=== PATIENT | female | born 1950 | race Caucasian/White ===

== ENCOUNTER 2017-02-16 14:04 | Emergency (ER) | payer OTHER ==
[2017-02-16] MEDS ORDERED: NS 1,000 ML IV ONE (14:15)
[2017-02-16 14:17] VITALS: PULSE 60; RESP 16; TEMP 98.1
--- NOTE | 2017-02-16 14:21 | EDPHY ---
H & P HPI/ROS: CHIEF COMPLAINT: Chest pain HISTORY OF PRESENT ILLNESS: The patient is a 66-year-old female with a history of pacemaker and AFib on Coumadin who comes to the emergency department for chest pain. She is traveling from [place] to [place] for a wedding. She states that about 13 hr ago she began having this pain. It has been constant ever since. She states that it improves when she takes a deep breath. She has not had any leg pain or swelling. She does not smoke. She has never had pain like this before. She has never had any coronary artery disease or procedures. The patient has some difficulty answering questioning. She tends stopping the metal stents and needs prompting to finish. She does not have any focal weakness or deficits. She states that she does not feel confused. I questioned her as why she stopped in [place] since that is out of the way and she told me it was on the way. REVIEW OF SYSTEMS: Constitutional: denies: chills, fever, recent illness, recent injury EENTM: denies: blurred vision, double vision, nose congestion Respiratory: denies: cough, shortness of breath Cardiac: See HPI Gastrointestinal/Abdominal: denies: abdominal pain, diarrhea, nausea, vomiting, blood streaked stools Genitourinary: denies: dysuria, frequency, hematuria, pain Musculoskeletal: denies: joint pain, muscle pain Skin: denies: lesions, rash, jaundice, bruising Neurological: denies: headache, numbness, paresthesia, tingling, dizziness, weakness Hematologic/Lymphatic: denies: blood clots, easy bleeding, easy bruising Immunologic/allergic: denies: HIV/AIDS, transplant EXAM: GENERAL: Well-appearing, well-nourished and in no acute distress. HEAD: Atraumatic, normocephalic. EYES: Pupils equal round and reactive to light, extraocular movements intact, sclera anicteric, conjunctiva are normal. ENT: TMs normal, nares patent, oropharynx clear without exudates. Moist mucous membranes. NECK: Normal range of motion, supple without lymphadenopathy or JVD. LUNGS: Breath sounds clear to auscultation bilaterally and equal. No wheezes rales or rhonchi. HEART: Regular rate and rhythm without murmurs, rubs or gallops. ABDOMEN: Soft, nontender, normoactive bowel sounds. No guarding, no rebound. No masses appreciated. BACK: No CVA tenderness, no spinal tenderness, step-offs or deformities EXTREMITIES: Normal range of motion, no pitting or edema. No clubbing or cyanosis. NEUROLOGICAL: Cranial nerves II through XII grossly intact. Normal speech, normal gait. 5/5 strength, normal movement in all extremities, normal sensation PSYCH: Normal mood, normal affect. SKIN: Warm, dry, normal turgor, no visible rashes or lesions. Source: Patient, EMS Exam Limitations: No limitations - Medical/Surgical History Hx Asthma: No Hx Chronic Respiratory Disease: No Hx Diabetes: No Hx Cardiac Disease: No Hx Renal Disease: No Hx Cirrhosis: No - Family History Significant Family History: No pertinent family hx - Social History Alcohol Use: Sober Drug Use: None Constitutional: Initial Vital Signs Temperature (C) 36.7 C 02/16/17 14:16 Heart Rate 60 02/16/17 14:16 Respiratory Rate 16 02/16/17 14:16 Blood Pressure 100/59 L 02/16/17 14:16 O2 Sat (%) 95 02/16/17 14:16 O2 Delivery Mode Room Air Allergies/Adverse Reactions: Penicillins Allergy (Verified 02/16/17 14:18) Home Medications: Medication Instructions Recorded Flecainide Acetate 02/16/17 Metoprolol 02/16/17 Pantoprazole Sodium [Protonix] 40 mg PO DAILY #30 tab 02/16/17 Warfarin Sodium 02/16/17 Medical Decision Making - Diagnostics EKG Interpretation: An EKG obtained and was read and documented in trace view. Please see trace view for full reading and report. Atrial paced rhythm, no acute ischemia Imaging Results: Imaging Impressions Chest/Thorax CTA 02/16/17 14:16 Impression: 1. There is no CT evidence of pulmonary artery thromboembolic disease. 2. Mild cardiomegaly, without congestive heart failure. 3. Cholelithiasis. Consider sonography for further assessment, as clinically directed. 4. Small hiatal hernia. Findings were discussed with SARAN CARRION MD at 15:45, on 02/16/2017. Imaging: Discussed imaging studies w/ inbound call center agent Radiologist ED Course/Re-evaluation: We discussed the patient's imaging and lab results which are reassuring specially in the face of 12 hr continuous symptoms. She states that this does feel similar to heartburn. I will treat her with a GI cocktail. She is well appearing on exam. Patient is feeling better after GI cocktail we discussed her hiatal hernia. I will start her on an acids. Will discharge at this time. Discussed indications for returning. Differential Diagnosis: Partial list of the Differential diagnosis considered include but were not limited to; acute coronary disease, peptic ulcer disease, hiatal hernia and although unlikely based on the history and physical exam, I also considered dissection, infection, PE, aneurysm. I discussed these differential diagnoses and the plan with the patient as well as the usual and expected course. The patient understands that the diagnosis is provisional and that in medicine we are not always correct and that further workup is often warranted. Usual and customary warnings were given. All of the patient's questions were answered. The patient was instructed to return to the emergency department should the symptoms at all worsen or return, otherwise to followup with the physician as we discussed. - Data Points Laboratory Results: Laboratory Results 02/16/17 14:10 02/16/17 14:10 02/16/17 02/16/17 02/16/17 14:10 14:10 14:10 WBC 12.46 10^3/uL H 10^3/uL (3.80-9.50) RBC 4.40 10^6/uL 10^6/uL (4.18-5.33) Hgb 14.1 g/dL g/dL (12.6-16.3) Hct 40.8 % % (38.0-47.0) MCV 92.7 fL fL (81.5-99.8) MCH 32.0 pg pg (27.9-34.1) MCHC 34.6 g/dL g/dL (32.4-36.7) RDW 13.0 % % (11.5-15.2) Plt Count 263 10^3/uL 10^3/uL (150-400) MPV 9.9 fL fL (8.7-11.7) Neut % (Auto) 65.9 % % (39.3-74.2) Lymph % (Auto) 25.4 % % (15.0-45.0) [place] % (Auto) 6.8 % % (4.5-13.0) Eos % (Auto) 1.0 % % (0.6-7.6) Baso % (Auto) 0.4 % % (0.3-1.7) Nucleat RBC Rel Count 0.0 % % (0.0-0.2) Absolute Neuts (auto) 8.20 10^3/uL H 10^3/uL (1.70-6.50) Absolute Lymphs (auto) 3.17 10^3/uL H 10^3/uL (1.00-3.00) Absolute Monos (auto) 0.85 10^3/uL H 10^3/uL (0.30-0.80) Absolute Eos (auto) 0.13 10^3/uL 10^3/uL (0.03-0.40) Absolute Basos (auto) 0.05 10^3/uL 10^3/uL (0.02-0.10) Absolute Nucleated RBC 0.00 10^3/uL 10^3/uL (0-0.01) Immature Gran % 0.5 % % (0.0-1.1) Immature Gran # 0.06 10^3/uL 10^3/uL (0.00-0.10) PT 20.1 SEC H SEC (12.0-15.0) INR 1.70 H (0.83-1.16) APTT 34.9 SEC SEC (23.0-38.0) Sodium 143 mEq/L mEq/L (134-144) Potassium 4.6 mEq/L mEq/L (3.5-5.2) Chloride 104 mEq/L mEq/L (97-110) Carbon Dioxide 27 mEq/l mEq/l (22-31) Anion Gap 12 mEq/L mEq/L (8-16) BUN 22 mg/dL mg/dL (7-23) Creatinine 0.9 mg/dL mg/dL (0.6-1.0) Estimated GFR > 60 Glucose 84 mg/dL mg/dL (70-100) Calcium 9.9 mg/dL mg/dL (8.5-10.4) Total Bilirubin 0.2 mg/dL mg/dL (0.1-1.4) Conjugated Bilirubin 0.2 mg/dL mg/dL (0.0-0.5) Unconjugated Bilirubin 0.0 mg/dL mg/dL (0.0-1.1) AST 34 IU/L IU/L (14-46) ALT 41 IU/L IU/L (9-52) Alkaline Phosphatase 78 IU/L IU/L (38-126) Troponin I < 0.012 ng/mL ng/mL (0.000-0.034) Total Protein 7.3 g/dL g/dL (6.3-8.2) Albumin 4.2 g/dL g/dL (3.5-5.0) Lipase 324 IU/L H IU/L (23-300) Medications Given: Discontinued Medications Al Hydroxide/Mg Hydroxide (Maalox Susp) 30 ml PO ONCE ONE Stop: 02/16/17 15:56 Last Admin: 02/16/17 16:02 Dose: 30 ml Hyoscyamine Sulfate (Levsin, Hyomax-Sl) 0.25 mg PO ONCE ONE Stop: 02/16/17 15:56 Last Admin: 02/16/17 16:02 Dose: 0.25 mg Sodium Chloride (Ns) 1,000 mls @ 0 mls/hr IV EDNOW ONE; Wide Open PRN Reason: Protocol Stop: 02/16/17 14:16 Last Admin: 02/16/17 14:42 Dose: 1,000 mls Lidocaine (Lidocaine 2% Viscous) 15 ml PO ONCE ONE Stop: 02/16/17 15:56 Last Admin: 02/16/17 16:02 Dose: 15 ml Departure - Departure Disposition: Home, Routine, Self-Care Clinical Impression: Chest pain Qualifiers: Chest pain type: unspecified Qualified Code(s): R07.9 - Chest pain, unspecified GERD (gastroesophageal reflux disease) Qualifiers: Esophagitis presence: esophagitis presence not specified Qualified Code(s): K21.9 - Gastro-esophageal reflux disease without esophagitis Condition: Fair Instructions: Chest Pain (ED), Gastroesophageal Reflux Disease (ED) Referrals: Patient,NotPresent [Unknown] - As per Instructions Prescriptions: Pantoprazole Sodium [Protonix] 40 mg PO DAILY #30 tab
[2017-02-16 14:39] LABS: PLATELET COUNT 263 10^3/uL (150-400)
[2017-02-16 14:49] LABS: INR 1.7 (0.83-1.16); PROTIME(PATIENT) 20.1 SEC (12.0-15.0)
[2017-02-16] MEDS ORDERED: IOPAMIDOL (ISOVUE 370) 100 ML BTL IV ONE (14:57)
[2017-02-16] MEDS ORDERED: LIDOCAINE 2% VISCOUS 15 ML UDCUP PO ONE (15:55)
[2017-02-16] MEDS ORDERED: MAG HYDROX/AL HYDROX/SIMETH 30 ML UDCUP PO ONE (15:55)
[2017-02-16] MEDS ORDERED: HYOSCYAMINE SULFATE 0.125 MG TAB PO ONE (15:55)
[2017-02-16 17:23] VITALS: BP 135/67; O2SAT 97
== END 2017-02-16 17:23 | disposition home or self-care (01) ==
DX: K21.9 Gastro-esophageal reflux disease without esophagitis (principal); E86.9 Volume depletion, unspecified; Z79.01 Long term (current) use of anticoagulants
CPT/HCPCS: 71275; 96360; 99285; Q9967